=== PATIENT | male | born 1980 | race Caucasian/White ===

== ENCOUNTER 2023-08-24 18:22 | Emergency (ER) | payer BC ==
[~2023-08-24] VITALS: Ht 180.3 cm; Wt 128.2 kg
[2023-08-24 19:39] VITALS: TEMP 98.4
[2023-08-24 22:01] VITALS: BP 155/119; PULSE 84; O2SAT 98
[2023-08-24] MEDS: diazepam inj 5 MG/ML inj. IM ONE (22:06)
[2023-08-24] MEDS ORDERED: NAPR-56 PO (22:08)
[2023-08-24] MEDS ORDERED: CYCL-1 PO (22:08)
[2023-08-24 22:14] VITALS: RESP 18
[2023-08-24] MEDS: ketorolac trometh. 30mg/ml inj. IM ONE (22:14)
== END 2023-08-24 22:32 | disposition home or self-care (01) ==
LOC: ER 18:23
DX: S16.1XXA Strain of muscle, fascia and tendon at neck level, initial encounter (principal); S40.012A Contusion of left shoulder, initial encounter; S50.02XA Contusion of left elbow, initial encounter; S06.0X0A Concussion without loss of consciousness, initial encounter; Z91.018 Allergy to other foods; Z79.899 Other long term (current) drug therapy; W22.8XXA Striking against or struck by other objects, initial encounter; Y93.89 Activity, other specified; Y92.89 Other specified places as the place of occurrence of the external cause; Y99.8 Other external cause status
CPT/HCPCS: 70450; 72125; 73030; 73080; 96372; 99285; J1885; J3360